=== PATIENT | female | born 1995 | race African-American/Black ===

== ENCOUNTER 2019-03-13 19:01 | Emergency (ER) | payer OTHER ==
[~2019-03-13] VITALS: Ht 157.5 cm; Wt 44.9 kg
[~2019-03-13 19:01] MED LIST: COLACE 100 MG100 MG PO; IBUPROFEN 600600 M1 PO; IRON325 PO
[2019-03-13 19:53] LABS: ABSOLUTE EOSINOPHILS 0.1 thou/uL (0.0-0.7); ABSOLUTE LYMPHOCYTES 0.8 thou/uL (0.8-5.3); ABSOLUTE MONOCYTES 0.3 thou/uL (0.0-1.2); ABSOLUTE NEUTROPHILS 3.9 thou/uL (1.6-8.1); BASOPHILS 0.4 %; EOSINOPHILS 1.7 %; HEMATOCRIT 37.8 % (37.0-47.0); HEMOGLOBIN 12.7 gm/dL (12.0-15.0); LYMPHOCYTES 15.5 %; MCH 30.1 pg (26.0-34.0); MCHC 33.5 g/dL (28.0-37.0); MCV 89.8 fL (80.0-100.0); MONOCYTES 6.6 %; MPV 8.8 fl. (7.2-11.1); NUCLEATED RBCS 0 /100WBC; PLATELET COUNT* 184 thou/uL (150-400); POLYS 75.8 %; RBC 4.21 mil/uL (4.20-5.00); RDW-CV 13.1 % (10.5-14.5); WBC 5.1 thou/uL (4.0-11.0)
[2019-03-13 20:04] LABS: URINE BILIRUBIN NEGATIVE (Negative); URINE BLOOD NEGATIVE (Negative); URINE CLARITY CLEAR; URINE COLOR YELLOW; URINE GLUCOSE-RANDOM NEGATIVE (Negative); URINE KETONES TRACE (Negative); URINE LEUKOCYTES-REFLEX NEGATIVE (Negative); URINE NITRITE-REFLEX NEGATIVE (Negative); URINE PROTEIN NEGATIVE (Negative); URINE UROBILINOGEN 0.2 E.U./dl (0.2-1.0)
[2019-03-13 20:04] LABS: CALCIUM 8.6 mg/dL (8.5-10.1); CREATININE 0.8 mg/dL (0.6-1.3); POTASSIUM 3.7 mmol/L (3.5-5.1)
[2019-03-13 20:08] LABS: ALBUMIN 3.8 g/dL (3.4-5.0); TOTAL BILIRUBIN 0.6 mg/dL (<0.1-1.0); TOTAL PROTEIN 7.6 g/dL (6.4-8.2)
[2019-03-13] MEDS ORDERED: ZOFRAN ODT4 MG PO (21:14)
[2019-03-13] MEDS ORDERED: VALIUM5 MG PO (21:14)
[2019-03-13 21:27] VITALS: BP 100/59
== END 2019-03-13 21:30 | disposition home or self-care (01) ==
LOC: M.ERS 19:01
PROVIDERS: Nurse Practitioner Family; Personal Emergency Response Attendant
DX: E86.0 Dehydration (principal); R11.2 Nausea with vomiting, unspecified; J45.909 Unspecified asthma, uncomplicated; Z88.9 Allergy status to unspecified drugs, medicaments and biological substances

== ENCOUNTER 2019-04-16 11:16 | Emergency (ER) | payer OTHER ==
[~2019-04-16] VITALS: Ht 157.5 cm; Wt 45.4 kg
[~2019-04-16 11:16] MED LIST changes: +VALIUM5 MG PO; +ZOFRAN ODT4 MG PO
[2019-04-16] MEDS ORDERED: VENTOLIN HFA 1818 GM INH (11:25)
[2019-04-16 12:01] LABS: ABSOLUTE EOSINOPHILS 0.2 thou/uL (0.0-0.7); ABSOLUTE LYMPHOCYTES 0.8 thou/uL (0.8-5.3); ABSOLUTE MONOCYTES 0.3 thou/uL (0.0-1.2); ABSOLUTE NEUTROPHILS 2.9 thou/uL (1.6-8.1); BASOPHILS 0.4 %; EOSINOPHILS 4.2 %; HEMATOCRIT 35.4 % (37.0-47.0); HEMOGLOBIN 12.2 gm/dL (12.0-15.0); LYMPHOCYTES 18.9 %; MCH 30.9 pg (26.0-34.0); MCHC 34.6 g/dL (28.0-37.0); MCV 89.3 fL (80.0-100.0); MONOCYTES 7.7 %; MPV 8.9 fl. (7.2-11.1); NUCLEATED RBCS 0 /100WBC; PLATELET COUNT* 167 thou/uL (150-400); POLYS 68.8 %; RBC 3.96 mil/uL (4.20-5.00); RDW-CV 13.2 % (10.5-14.5); WBC 4.1 thou/uL (4.0-11.0)
[2019-04-16 12:04] LABS: ANION GAP 8 mmol/L (7-16); BUN 9 mg/dL (7-18); CALCIUM 8.7 mg/dL (8.5-10.1); CHLORIDE 102 mmol/L (98-107); CO2 26 mmol/L (21-32); CREATININE 0.8 mg/dL (0.6-1.3); GLUCOSE 67 mg/dL (70-99); POTASSIUM 3.4 mmol/L (3.5-5.1); SODIUM 136 mmol/L (136-145)
[2019-04-16 12:17] LABS: TROPONIN-I LEVEL <0.06 ng/mL (<0.06)
[2019-04-16 14:18] VITALS: BP 98/52
--- NOTE | 2019-04-16 17:23 | EKG ---
[place] [address] ELECTROCARDIOGRAM REPORT Name: VLAD ANGULO Room: [facility]#: [id number] Admission: 04/16/19 Attend Phys: Discharge: 04/16/19 Date of : [birth year] Report #: [id number] THIS REPORT FOR: //name// [facility] ED Test Date: 2019-04-16 Test Time: 11:23:09 Pat Name: VLAD ANGULO Department: Room: Gender: F [place]: ISACC : 1995 Requested By: Veronika Dow Order Number: [id number] MD: Lj Partida Measurements Intervals [place] Rate: 76 P: 76 [place]: 148 QRS: 61 QRSD: 88 T: 39 QT: 360 QTc: 405 Interpretive Statements Sinus rhythm No previous ECG available for comparison Electronically Signed On 04-16-2019 17:23:36 CDT by Lj Partida [email or web address] <ELECTRONICALLY SIGNED> By: jL Partida MD, [facility] 04/16/19 1723 [id number] Lj Partida MD, FACC /EPI
== END 2019-04-16 14:19 | disposition home or self-care (01) ==
LOC: M.ERS 11:16
PROVIDERS: Nurse Practitioner
DX: O99.411 Diseases of the circulatory system complicating pregnancy, first trimester (principal); I20.8 Other forms of angina pectoris; O99.511 Diseases of the respiratory system complicating pregnancy, first trimester; J45.909 Unspecified asthma, uncomplicated; Z3A.01 Less than 8 weeks gestation of pregnancy

== ENCOUNTER 2019-05-25 20:51 | Emergency (ER) | payer OTHER ==
[~2019-05-25] VITALS: Ht 157.5 cm; Wt 44.9 kg
[~2019-05-25 20:51] MED LIST changes: +VENTOLIN HFA 1818 GM INH
[2019-05-25] MEDS ORDERED: ONDANSETRON ODT4 MG PO (21:00)
[2019-05-25 21:15] LABS: ABSOLUTE EOSINOPHILS 0.2 thou/uL (0.0-0.7); ABSOLUTE LYMPHOCYTES 0.9 thou/uL (0.8-5.3); ABSOLUTE MONOCYTES 0.4 thou/uL (0.0-1.2); ABSOLUTE NEUTROPHILS 4.2 thou/uL (1.6-8.1); BASOPHILS 0.4 %; EOSINOPHILS 3.1 %; HEMATOCRIT 37.6 % (37.0-47.0); HEMOGLOBIN 13.1 gm/dL (12.0-15.0); LYMPHOCYTES 15.7 %; MCH 31.1 pg (26.0-34.0); MCHC 34.8 g/dL (28.0-37.0); MCV 89.4 fL (80.0-100.0); MPV 8.7 fl. (7.2-11.1); NUCLEATED RBCS 0 /100WBC; PLATELET COUNT* 212 thou/uL (150-400); POLYS 73.8 %; RDW-CV 12.8 % (10.5-14.5); WBC 5.7 thou/uL (4.0-11.0)
[2019-05-25 21:22] LABS: CALCIUM 9.4 mg/dL (8.5-10.1); CREATININE 0.7 mg/dL (0.6-1.3); POTASSIUM 3.5 mmol/L (3.5-5.1)
[2019-05-25 21:26] LABS: ALBUMIN 3.8 g/dL (3.4-5.0); TOTAL BILIRUBIN 0.6 mg/dL (<0.1-1.0); TOTAL PROTEIN 8.1 g/dL (6.4-8.2)
[2019-05-25 22:51] LABS: URINE BILIRUBIN NEGATIVE (Negative); URINE BLOOD NEGATIVE (Negative); URINE CLARITY CLEAR; URINE COLOR YELLOW; URINE GLUCOSE-RANDOM NEGATIVE (Negative); URINE KETONES 3+ (Negative); URINE LEUKOCYTES-REFLEX NEGATIVE (Negative); URINE NITRITE-REFLEX NEGATIVE (Negative); URINE PROTEIN NEGATIVE (Negative); URINE UROBILINOGEN 0.2 E.U./dl (0.2-1.0)
[2019-05-25] MEDS ORDERED: PHENERGAN 25 MG25 M1 PO (23:06)
[2019-05-25] MEDS ORDERED: ZOFRAN ODT4 MG PO (23:06)
[2019-05-25 23:41] VITALS: BP 100/60
== END 2019-05-25 23:45 | disposition home or self-care (01) ==
LOC: M.ERS 20:51
PROVIDERS: Emergency Medicine
DX: O21.0 Mild hyperemesis gravidarum (principal); R10.9 Unspecified abdominal pain; J45.909 Unspecified asthma, uncomplicated; Z3A.12 12 weeks gestation of pregnancy